=== PATIENT | female | born 1985 | race Caucasian/White ===

== ENCOUNTER 2020-11-13 19:08 | Emergency (ER) | payer OTHER ==
[~2020-11-13 19:08] MED LIST: LODINE CAP 300300 MG PO; ZOFRAN ODT 4 MG4 MG PO
[2020-11-13 21:59] LABS: HEMOGLOBIN 13.9 gm/dl (12.3-15.3); RED BLOOD COUNT 4.24 M/UL (4.00-5.10)
[2020-11-13 22:30] LABS: BUN/CREATININE RATIO 15 (0-10)
== END 2020-11-14 00:15 | disposition home or self-care (01) ==
LOC: ER1 19:08
PROVIDERS: Physician Assistant
DX: R07.9 Chest pain, unspecified (principal); R10.9 Unspecified abdominal pain; R06.02 Shortness of breath; F17.290 Nicotine dependence, other tobacco product, uncomplicated; Z88.0 Allergy status to penicillin; Z88.1 Allergy status to other antibiotic agents
CPT/HCPCS: 71045; 80053; 81001; 82550; 82553; 83690; 83735; 83874; 83880; 84484; 84703; 85025; 85379; 85610; 85730; 87086; 93005; 99285; Q9967